=== PATIENT | male | born 2000 | race Caucasian/White ===

== ENCOUNTER 2023-08-11 16:39 | Emergency (ER) | payer OTHER, SELFPAY ==
[2023-08-11 16:41] VITALS: BP 133/78; PULSE 82; RESP 20; TEMP 37; O2SAT 99
--- NOTE | 2023-08-11 16:45 | DI.RAD_ITS ---
Exam(s) XR SHOULDER LT COMPLETE 2+V XR CLAVICLE LT EXAM: XR SHOULDER LT COMPLETE 2+V CLINICAL HISTORY: chest and arm injury. TECHNIQUE: 2D digital imaging was performed. Four views of the shoulder. Two views of the clavicle COMPARISON: CR XR CLAVICLE LT from 08/11/2023 FINDINGS: BONES: No acute fracture is present. No bony destructive lesion is seen. JOINTS: No dislocation present. SOFT TISSUE: Normal. IMPRESSION: Unremarkable radiographs of the left shoulder and clavicle. DATA REPOSITORY: RADIATION DOSE DELIVERED:
--- NOTE | 2023-08-11 16:50 | W.ED.GENAD ---
Discharge Plan Disposition Patient Disposition: Home Condition: Improving Discharge Details Chief Complaint: Orthopedic Clinical Impression: Clavicle pain Primary Care Provider: Jabari Carrillo ED Provider: Subhash Lyman Home Meds and New Rx's Prescriptions: No Action No Known Home Meds Discharge Instructions Instructions: Shoulder Pain (ED) Additional Instructions: Please continue with ice ibuprofen and/or acetaminophen as needed for pain and swelling. 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 Pain and superficial abrasion overlying mid left clavicle, range of motion of shoulder elbow wrist and hand intact neurovascular exam of limb intact, no respiratory symptoms. Hemodynamically stable. No other signs of trauma. Consider clavicular contusion versus clavicular fracture lower suspicion for shoulder fracture or dislocation. Will administer analgesia anti-inflammatory will perform x-ray of clavicle and shoulder 18: 18 patient resting comfortably no acute distress. X-rays negative HPI General Date/Time Provider Initiated Documentation: 08/11/23 16:45. 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 No other injuries Related Data Home Medications Medication Instructions Recorded Confirmed Unknown [No Known Home Meds] 05/25/18 08/11/23 Allergies Allergy/AdvReac Type Severity Reaction Status Date / Time No Known Allergies Allergy Unverified 08/11/23 16:45 General Stated Complaint: Orthopedic ROXY: 4 Review of Systems Narrative: Review of Systems Constitutional: negative Eyes: negative ENT: negative Cardiovascular: negative Respiratory: negative Gastrointestinal: negative : negative Musculoskeletal: Clavicle pain Skin: negative Neurologic: negative Psych: negative PFSH All Active Problems (Updated 08/11/23 @ 18:18 by Subhash Lyman MD) Clavicle pain (Acute) Social History Smoking risk assessment performed?: No Alcohol Intake: current Do you feel safe in your relationship?: Yes Exam Narrative Exam Narrative: Physical Examination General: alert, awake, cooperative, resting comfortably, no acute distress HEENT: normocephalic, atraumatic; PERRL, EOM intact, conjunctiva normal; no nasal discharge; moist mucous membranes, oral and pharyngeal mucosa normal, tolerating secretions Neck: supple, trachea midline; full ROM Chest: Superficial abrasion overlying left mid clavicle without skin tenting Respiratory: normal respiratory effort, speaking in full sentences Cardiac: regular rate, regular rhythm, S1S2 intact, no murmurs rubs or gallops Skin: Superficial abrasion overlying left clavicle Neuro: AAOx3, normal speech, moving all extremities Extremities: No pain to shoulder humerus elbow wrist or hand, soft compartments, warm well perfused sensate mobile extremity, pain and superficial abrasion overlying the mid left clavicle without skin tenting Psych: Appropriate mood and affect Course Vital Signs Vital signs: Vital Signs Temperature 37.0 C 08/11/23 16:41 Pulse 82 08/11/23 16:41 Respiratory Rate 20 08/11/23 16:41 Blood Pressure 133/78 08/11/23 16:41 Pulse Oximetry 99 08/11/23 16:41 Temperature 37.0 C 08/11/23 16:41 Temperature Source Oral 08/11/23 16:41 Pulse 82 08/11/23 16:41 Respiratory Rate 20 08/11/23 16:41 Respiratory Effort Normal 08/11/23 16:48 Blood Pressure 133/78 08/11/23 16:41 Blood Pressure Position Sitting 08/11/23 16:41 Pulse Oximetry 99 08/11/23 16:41 Oxygen Delivery Method Room Air 08/11/23 16:41 Oxygen Flow Rate 0 08/11/23 16:41 PAWSS Have you Been Recently Intoxicated or Drunk Within the Last 30 days?: No Have you Ever Experienced Previous Episodes of Alcohol Withdrawal?: No Have you ever Experienced Withdrawal Seizures?: No Have you ever Experienced Delirium Tremens(DT)s?: No Have you ever undergone Alcohol Rehabilitation Treatment (i.e, inpt ot outpatient treatment programs)?: No Have you ever Experienced Blackouts?: No Have you ever Combined Alcohol with other Downers within the last 90 days?: No Have you ever Combined Alcohol with any other Substance of Abuse during the last 90 days?: No Positive Blood Alcohol level on Presentation? [PCS.BAL]: No Evidence of Increased Autonomic Activity (i.e. HR>120, tremor, sweating, agitation, nausea)?: No Result: 0
[2023-08-11] MEDS: Ketorolac 15 MG/ML VIAL IM (16:55)
[2023-08-11] MEDS: Lidocaine 5% Patch 1 PATCH TP (16:55)
[2023-08-11] MEDS: Acetaminophen 325 MG TAB 650 MG PO (16:55)
== END 2023-08-11 18:29 | disposition home or self-care (01) ==
PROVIDERS: Emergency Provider Emergency Medicine; PCP Neuromusculoskeletal Medicine & OMM
DX: M25.512 Pain in left shoulder (principal); S29.9XXA Unspecified injury of thorax, initial encounter; W22.8XXA Striking against or struck by other objects, initial encounter; Y99.0 Civilian activity done for income or pay; S49.92XA Unspecified injury of left shoulder and upper arm, initial encounter
CPT/HCPCS: 96374; 99284; 73000; 73030; 99283; J1885